=== PATIENT | female | born 1990 | race Caucasian/White ===

== ENCOUNTER 2017-09-27 17:46 | Emergency (ER) | payer OTHER ==
[~2017-09-27] VITALS: Ht 160 cm; Wt 54.4 kg
[~2017-09-27 17:46] MED LIST: ACET500 PO; Bactrim Ds Tab1 EACH PO; IBUP600 PO; MULVITMINE PO; Norco 5-325 Ta1 EACH PO; ONDA4 PO; Permethrin60 GM TP; RXSULTRIDS PO; SULTRIDS PO; TRAM50 PO
== END 2017-09-27 20:11 | disposition home or self-care (01) ==
LOC: ER 17:46
DX: F11.10 Opioid abuse, uncomplicated (principal); F17.200 Nicotine dependence, unspecified, uncomplicated; Z88.0 Allergy status to penicillin; Z88.5 Allergy status to narcotic agent; Z79.899 Other long term (current) drug therapy
CPT/HCPCS: 36415; 93005; 93010; 99283

== ENCOUNTER → 2019-07-19 | Outpatient (CLI) | payer OTHER | LOC: LAB SHORT 09:16 → LAB 09:16 | DX: N94.89 Other specified conditions associated with female genital organs and menstrual cycle (principal) | CPT/HCPCS: 87529 ==

== ENCOUNTER 2019-09-29 03:50 | Emergency (ER) | payer OTHER ==
[~2019-09-29] VITALS: Ht 152.4 cm; Wt 63.0 kg
[2019-09-29 05:14] LABS: Influenza A Negative (NEGATIVE); Influenza B Negative (NEGATIVE)
[2019-09-29 05:23] LABS: Source, Urine Clean Catch
[2019-09-29 05:26] LABS: Bilirubin, Urine Neg (Neg); Blood, Urine 2+ (Neg); Glucose Qualitative, Urine Neg (Neg); Ketones, Urine 3+ (Neg); Leukocyte Esterase, Urine 1+ (Neg); Nitrite, Urine Neg (Neg); Protein, Urine 2+ (Neg); Urobilinogen, Urine NORM (Normal)
[2019-09-29 05:32] LABS: Appearance, Urine Hazy (Clear); Color, Urine Yellow (P-Yellow)
[2019-09-29 05:37] LABS: Bacteria Many /hpf; Squamous Epithelial Cells Many /hpf (Few)
[2019-09-29] MEDS ORDERED: IBUP600 PO (06:02)
[2019-09-29 07:15] LABS: BASOPHILS ABSOLUTE AUTO 0.05 K/mm3 (0.00-0.23); BASOPHILS PERCENT AUTO 0 % (0-2); EOSINOPHILS ABSOLUTE AUTO 0.05 K/mm3 (0.00-0.68); EOSINOPHILS PERCENT AUTO 0 % (0-6); Hematocrit 45.9 % (33.0-51.0); Hemoglobin 15.7 g/dL (11.5-16.0); IMMATURE GRAN ABSOLUTE AUTO 0.07 K/mm3 (0.00-0.10); IMMATURE GRAN PERCENT AUTO 1 % (0-1); LYMPHOCYTES PERCENT AUTO 15 % (21-46); MONOCYTES ABSOLUTE AUTO 1.09 K/mm3 (0.16-1.47); MONOCYTES PERCENT AUTO 8 % (4-13); Mean Corpuscular HGB 29.8 pg (26.0-34.0); Mean Corpuscular HGB Conc 34.2 g/dL (31.5-36.5); Mean Corpuscular Volume 87 fL (80-100); Mean Platelet Volume 9.6 fL (9.1-12.4); NEUTROPHILS ABSOLUTE AUTO 11.01 K/mm3 (1.96-9.15); NEUTROPHILS PERCENT AUTO 77 % (41-73); Platelet Count 257 K/mm3 (150-400); RDW Coefficient Variation 12.1 % (11.7-14.2); RDW Standard Deviation 38.8 fL (35.1-46.3); Red Blood Cell Count 5.26 M/mm3 (3.80-5.20); White Blood Cell Count 14.37 K/mm3 (4.00-11.30)
[2019-09-29 07:23] LABS: International Normalized Ratio 1.01; Prothrombin Time Results 10.7 Sec (9.7-11.5)
[2019-09-29 07:26] LABS: Alanine Aminotransfer (ALT/SGP 23 U/L (12-78); Albumin, Blood 4.2 g/dL (3.4-5.0); Albumin/Globulin Ratio 1.1 (0.8-1.8); Alk Phos 67 U/L (50-136); Anion Gap 6 mmol/L (6-16); Aspartate Aminotrans (AST/SGOT 17 U/L (12-37); Bilirubin, Total 0.6 mg/dL (0.1-1.0); Blood Urea Nitrogen 8 mg/dL (8-24); Bun/Creatinine Ratio 14.9 (12.0-20.0); CO2, Blood 25 mmol/L (21-32); Calcium, Blood 9.1 mg/dL (8.5-10.1); Chloride, Blood 107 mmol/L (98-108); Creatinine, Blood 0.54 mg/dL (0.40-1.00); Globulin, Blood 3.8 g/dL (2.2-4.0); Glomerular Filtration Rate >60 (60-); Glucose, Blood 127 mg/dL (70-99); Potassium, Blood 3.5 mmol/L (3.5-5.5); Sodium, Blood 138 mmol/L (136-145)
== END 2019-09-29 08:30 | disposition home or self-care (01) ==
LOC: ER 03:50
PROVIDERS: Emergency Medicine
DX: I62.9 Nontraumatic intracranial hemorrhage, unspecified (principal); I60.9 Nontraumatic subarachnoid hemorrhage, unspecified; F17.200 Nicotine dependence, unspecified, uncomplicated; Z88.0 Allergy status to penicillin; Z88.5 Allergy status to narcotic agent
CPT/HCPCS: 70450; 80053; 81001; 81025; 85025; 85610; 85730; 87086; 87804; 96361; 96365; 96372-59; 96375; 99285-25; A9270-GY; J1885; J1953; J3010; J3486; J7120

== ENCOUNTER 2019-10-07 13:19 | Emergency (ER) | payer OTHER ==
[~2019-10-07] VITALS: Ht 152.4 cm; Wt 63.5 kg
[2019-10-07 13:59] LABS: BASOPHILS ABSOLUTE AUTO 0.09 K/mm3 (0.00-0.23); BASOPHILS PERCENT AUTO 1 % (0-2); EOSINOPHILS ABSOLUTE AUTO 0.11 K/mm3 (0.00-0.68); EOSINOPHILS PERCENT AUTO 1 % (0-6); Hematocrit 45.4 % (33.0-51.0); Hemoglobin 15.1 g/dL (11.5-16.0); IMMATURE GRAN ABSOLUTE AUTO 0.06 K/mm3 (0.00-0.10); IMMATURE GRAN PERCENT AUTO 1 % (0-1); LYMPHOCYTES ABSOLUTE AUTO 2.46 K/mm3 (0.84-5.20); LYMPHOCYTES PERCENT AUTO 21 % (21-46); MONOCYTES ABSOLUTE AUTO 0.78 K/mm3 (0.16-1.47); MONOCYTES PERCENT AUTO 7 % (4-13); Mean Corpuscular HGB 29.8 pg (26.0-34.0); Mean Corpuscular HGB Conc 33.3 g/dL (31.5-36.5); Mean Platelet Volume 9.6 fL (9.1-12.4); NEUTROPHILS ABSOLUTE AUTO 8.28 K/mm3 (1.96-9.15); NEUTROPHILS PERCENT AUTO 70 % (41-73); Platelet Count 254 K/mm3 (150-400); RDW Coefficient Variation 12.2 % (11.7-14.2); RDW Standard Deviation 39.6 fL (35.1-46.3); Red Blood Cell Count 5.07 M/mm3 (3.80-5.20); White Blood Cell Count 11.78 K/mm3 (4.00-11.30)
[2019-10-07] MEDS ORDERED: DIVA500ER PO (13:59)
[2019-10-07] MEDS ORDERED: Esgic Tablet1 EACH PO (13:59)
[2019-10-07] MEDS ORDERED: NEURONTIN300 MG PO (13:59)
[2019-10-07 14:16] LABS: Alanine Aminotransfer (ALT/SGP 27 U/L (12-78); Albumin, Blood 3.6 g/dL (3.4-5.0); Albumin/Globulin Ratio 0.9 (0.8-1.8); Alk Phos 62 U/L (50-136); Anion Gap 9 mmol/L (6-16); Aspartate Aminotrans (AST/SGOT 21 U/L (12-37); Bilirubin, Total 0.3 mg/dL (0.1-1.0); Blood Urea Nitrogen 15 mg/dL (8-24); Bun/Creatinine Ratio 30.9 (12.0-20.0); CO2, Blood 23 mmol/L (21-32); Calcium, Blood 8.7 mg/dL (8.5-10.1); Chloride, Blood 107 mmol/L (98-108); Creatinine, Blood 0.49 mg/dL (0.40-1.00); Globulin, Blood 3.8 g/dL (2.2-4.0); Glomerular Filtration Rate >60 (60-); Glucose, Blood 100 mg/dL (70-99); Potassium, Blood 4.4 mmol/L (3.5-5.5); Sodium, Blood 139 mmol/L (136-145); Total Protein, Blood 7.4 g/dL (6.4-8.2)
[2019-10-07 14:20] LABS: Mean Corpuscular Volume 90 fL (80-100)
== END 2019-10-07 15:45 | disposition short-term general hospital (02) ==
LOC: ER 13:19
PROVIDERS: Physician Assistant
DX: I61.9 Nontraumatic intracerebral hemorrhage, unspecified (principal)
CPT/HCPCS: 36415; 70450; 80053; 85025; 96374; 96375; 99285-25; J1170; J2405; J3010